=== PATIENT | female | born 2000 | race Caucasian/White ===

== ENCOUNTER 2022-07-08 12:43 | Emergency (ER) | payer OTHER ==
[~2022-07-08] VITALS: Ht 170.2 cm; Wt 88.6 kg
[2022-07-08] MEDS ORDERED: IBUP200C28 PO (12:53)
[2022-07-08] MEDS ORDERED: FLUO40CA PO (12:53)
[2022-07-08] MEDS ORDERED: IBUPROFEN 800 MG TAB PO ONE (15:15)
[2022-07-08] MEDS ORDERED: ACETAMINOPHEN TAB 650MG DOSE (2X325MG) PO ONE (15:15)
[2022-07-08] MEDS ORDERED: METH-1165 PO (15:23)
[2022-07-08] MEDS ORDERED: NAPR-837 PO (15:23)
[2022-07-08 15:34] VITALS: BP 126/60
== END 2022-07-08 15:35 | disposition home or self-care (01) ==
LOC: M ED 12:43
DX: S30.0XXA Contusion of lower back and pelvis, initial encounter (principal); M51.36 Other intervertebral disc degeneration, lumbar region; W10.8XXA Fall (on) (from) other stairs and steps, initial encounter; F41.9 Anxiety disorder, unspecified; F32.A Depression, unspecified; Z79.1 Long term (current) use of non-steroidal anti-inflammatories (NSAID); Z79.899 Other long term (current) drug therapy

== ENCOUNTER 2022-08-18 18:09 | Emergency (ER) | payer OTHER ==
[~2022-08-18] VITALS: Ht 170.2 cm; Wt 89.7 kg
[~2022-08-18 18:09] MED LIST: FLUO40CA PO; IBUP200C28 PO; METH-1165 PO; NAPR-837 PO
[2022-08-18 18:10] VITALS: BP 145/86
[2022-08-18 21:33] LABS: APPEARANCE, URINE CLEAR (CLEAR); BACTERIA, URINE AUTO NEGATIVE (NEGATIVE); BILIRUBIN, URINE AUTO NEGATIVE (NEGATIVE); BLOOD, URINE BLOOD 2+ (NEGATIVE); COLOR, URINE YELLOW (YELLOW); GLUCOSE, URINE (UA) AUTO NEGATIVE (NEGATIVE); KETONE, URINE AUTO NEGATIVE (NEGATIVE); LEUKOCYTE ESTERASE, URINE AUTO NEGATIVE (NEGATIVE); MUCUS, URINE SMALL (NEGATIVE); NITRITE, URINE AUTO NEGATIVE (NEGATIVE); PROTEIN, URINE AUTO NEGATIVE (NEGATIVE); RBC, URINE AUTO 2 /HPF (0-3); SPECIFIC GRAVITY URINE AUTO 1.023 (1.002-1.035); SQUAMOUS EPITHELIAL CELL UR AU 0 /HPF (0-6); UROBILINOGEN, URINE AUTO 0.2 mg/dL (0.0-2.0); WBC, URINE AUTO 0 /HPF (0-3)
[2022-08-18 23:15] LABS: URINE PREG TEST NEGATIVE (NEGATIVE)
[2022-08-18 23:58] LABS: BASO # 0.1 10^3/uL (0.0-0.2); BASO % 0.5 % (0.0-1.0); EOS # 0.1 10^3/uL (0.0-0.5); EOS % 0.9 % (0.0-3.0); HEMATOCRIT 40.3 % (36.0-47.0); HEMOGLOBIN 13.3 g/dl (12.0-15.5); LYMPH # 2.9 10^3/uL (1.5-5.0); MEAN CORPUSCULAR HEMOGLOBIN 30.6 pg (27.0-33.0); MEAN CORPUSCULAR VOLUME 92.6 fl (80.0-96.0); MONO # 0.9 10^3/uL (0.0-0.8); MONO % 7.3 % (2.0-8.0); PLATELET COUNT, AUTOMATED 241 10^3/uL (150-450); RED BLOOD COUNT 4.35 10^6/uL (4.00-5.40)
[2022-08-19 00:20] LABS: ALBUMIN 3.8 G/DL (3.2-5.2); ALKALINE PHOSPHATASE 81 U/L (46-116); ALT/SGPT 27 U/L (7.0-40); AST/SGOT 18 U/L (<34); BILIRUBIN,DIRECT 0.1 MG/DL (<0.4); BILIRUBIN,TOTAL 0.3 MG/DL (0.3-1.2); BLOOD UREA NITROGEN 10 MG/DL (9-23); CALCIUM LEVEL 8.7 MG/DL (8.5-10.1); CARBON DIOXIDE LEVEL 27 MMOL/L (20-31); CHLORIDE LEVEL 108 MMOL/L (98-107); CREATININE FOR GFR 0.85 MG/DL (0.55-1.30); GLUCOSE, FASTING 85 MG/DL (60-100); POTASSIUM SERUM 3.7 MMOL/L (3.5-5.1); SODIUM LEVEL 140 MMOL/L (136-145); TOTAL PROTEIN 6.8 G/DL (5.7-8.2)
[2022-08-19 00:21] LABS: INR 0.91; PROTHROMBIN TIME 12.5 SECONDS (12.5-14.5)
[2022-08-19 00:22] LABS: PARTIAL THROMBOPLASTIN TIME 27.9 SECONDS (24.8-34.2)
[2022-08-19] MEDS ORDERED: ISOVUE-370 76% 100ML VIAL As Ordered ONE (00:31)
[2022-08-19 00:42] LABS: GC DNA AMPLIFICATION NEGATIVE (NEGATIVE)
[2022-08-19] MEDS ORDERED: METR-265 PO (01:58)
[2022-08-19] MEDS ORDERED: metroNIDAZOLE (FLAGYL) 500MG TABLET PO ONE (02:10)
== END 2022-08-19 02:33 | disposition home or self-care (01) ==
LOC: M ED 18:09
DX: N76.0 Acute vaginitis (principal); Z79.2 Long term (current) use of antibiotics
CPT/HCPCS: 36415; 74177; 80048; 80076; 81001; 84703; 85025; 85610; 85730; 86850; 86900; 86901; 87210; 87810; 87850; 99283; Q9967

== ENCOUNTER 2023-11-24 10:16 | Emergency (ER) | payer OTHER ==
[~2023-11-24] VITALS: Ht 170.2 cm; Wt 86.5 kg
[~2023-11-24 10:16] MED LIST changes: +METR-265 PO
[2023-11-24] MEDS ORDERED: FLUO40CA (10:25)
[2023-11-24] MEDS ORDERED: CEPH500C (10:25)
[2023-11-24 13:44] VITALS: BP 110/56; TEMP 98.9; O2SAT 96
[2023-11-24] MEDS ORDERED: ONDA-282 PO (14:11)
[2023-11-24] MEDS ORDERED: MAALSUS19 PO (14:11)
[2023-11-24] MEDS ORDERED: GUAI100L6 PO (14:11)
[2023-11-24] MEDS ORDERED: CLAR10CA3 PO (14:11)
[2023-11-24] MEDS: ACETAMINOPHEN 500 MG TAB PO ONE (14:22)
[2023-11-24] MEDS: ONDANSETRON 4MG ORAL DISINTEGRATING TAB PO ONE (14:22)
== END 2023-11-24 14:26 | disposition home or self-care (01) ==
LOC: M ED 10:16
DX: U07.1 COVID-19 (principal); R11.2 Nausea with vomiting, unspecified; F41.9 Anxiety disorder, unspecified; F32.A Depression, unspecified; Z79.899 Other long term (current) drug therapy; Z79.2 Long term (current) use of antibiotics; Z79.83 Long term (current) use of bisphosphonates